=== PATIENT | female | born 1985 | race Caucasian/White ===

== ENCOUNTER 2017-04-25 16:15 | Inpatient (IN) | payer OTHER ==
[~2017-04-25] VITALS: Ht 157.5 cm; Wt 82.2 kg
[2017-04-25 16:33] VITALS: BP 114/58; PULSE 92; Ht 157.5 cm; Wt 82.2 kg
[2017-04-25] MEDS ORDERED: PNV11TAB PO (16:35)
[2017-04-25 17:20] LABS: ADD UMIC NO; UR ASCORBIC ACID 20 mg/dL (NEGATIVE); UR BILIRUBIN (Dip) NEGATIVE (NEGATIVE); UR BLOOD (Dip) NEGATIVE (NEGATIVE); UR CLARITY CLEAR (CLEAR); UR COLOR YELLOW (YELLOW); UR GLUCOSE (Dip) NEGATIVE (NEGATIVE); UR KETONES (Dip) NEGATIVE (NEGATIVE); UR LEUKOCYTE ESTERASE (Dip) NEGATIVE Leu/ul (NEGATIVE); UR NITRITE (Dip) NEGATIVE (NEGATIVE); UR TOTAL PROTEIN (Dip) NEGATIVE (NEGATIVE); UR UROBILINOGEN (Dip) NEGATIVE (NEGATIVE)
[2017-04-25 17:30] LABS: BASOPHILS % 0.2 % (0.0-2.0); EOSINOPHILS # 0.1 10^3/ul (0.0-0.5); EOSINOPHILS % 0.7 % (0.0-7.0); HEMATOCRIT 32.5 % (37.0-47.0); HEMOGLOBIN 11.3 g/dl (12.0-16.0); LYMPHOCYTES % 18.7 % (15.0-51.0); MEAN CORPUSCULAR HEMOGLOBIN 31.1 pg (29.0-33.0); MEAN CORPUSCULAR HGB CONC 34.8 g/dl (32.0-37.0); MEAN CORPUSCULAR VOLUME 89.5 fl (82.0-101.0); MONOCYTE # 0.8 10^3/ul (0.3-0.9); NEUTROPHIL # 7.8 10^3/ul (1.6-7.5); NEUTROPHILS % 72.8 % (39.0-77.0); PLATELET COUNT 180 10^3/UL (140-415); RED BLOOD COUNT 3.63 10^6/ul (4.20-5.40); WHITE BLOOD COUNT 10.7 10^3/ul (4.8-10.8)
--- NOTE | 2017-04-25 17:43 | RADRPT ---
PROCEDURE: Obstetrical ultrasound CLINICAL INDICATION: labor TECHNIQUE: Multiple sonographic images of the pelvis were obtained. The images were reviewed on a PACS workstation. COMPARISON: None FINDINGS: The cervix is not well visualized. There is a single viable intrauterine gestation. Cardiac activity is present with 174 beats per minute. There is a vertex presentation. The placenta is anterior. There is no evidence for an abruption or placenta previa. There is a subjectively normal amount of amniotic fluid. Measurements were made in order to determine age. The results are as follows (cm): BPD =9.34 HC =32.93 AC =33.40 FL =7.37 Estimated gestational age by ultrasound of approximately 37 weeks, 4 days. The estimated date of delivery by ultrasound is 05/12/2017. Estimated gestational age by LMP of approximately 36 weeks, 2 days. The estimated date of delivery by LMP is 05/21/2017. EFW = 3227 grams (83rd percentile) IMPRESSION: Single viable intrauterine gestation of approximately 37 weeks, 4 days . The estimated date of delivery is 05/12/2017 . Dating by ultrasound is within 9 days of dating by LMP. Cephalic presentation. Anterior placenta. Estimated weight is in the 83rd percentile. RPTAT: EE Physician Zena Date Time Electronically viewed and signed by Physician Zena on 04/25/2017 17:42 /
--- NOTE | 2017-04-25 18:03 | RADRPT ---
PROCEDURE: US OB biophysical profile. CLINICAL INDICATION: decreased movements, PTL TECHNIQUE: Multiple sonographic images of the pelvis were obtained. The images were reviewed on a PACS workstation. COMPARISON: No prior studies are available for comparison. FINDINGS: There is a single viable intrauterine gestation. Cardiac activity is present with 156 beats per min [place]. There is a vertex presentation. The placenta is anterior. There is no evidence of placental abruption. There is a normal amount of amniotic fluid with an ALON = 13.5 cm. Biophysical profile: movement 2/2 tone 2/2. breathing 2/2 ALON 2/2 Total 02/18 RPTAT: AA . IMPRESSION: Normal biophysical profile. . .Kaushik Alejandro MD, Date Time Electronically viewed and signed by .Kaushik Alejandro MD, MD on 04/25/2017 18:03 .S/
--- NOTE | 2017-04-25 18:57 | HP ---
Date/Time of Note Date/Time of Note DATE: 04/25/17 TIME: 18:55 OB - History Hx of Present Free Text/Dictation 37+wks with Variables for prolonged monitoring and IV hydration : 3 Para: 2 Care: Good Care Ultrasounds: Normal mid trimester US Obstetrical Complications: None Medical Complications: None Past Family/Social History * Past Medical, Surgical, Family and Obstetric Histories reviewed from chart. OB Admission Exam Vital Signs Vital Signs Vital Signs Date Time Temp Pulse Resp B/P Pulse Ox O2 Delivery O2 Flow Rate FiO2 04/25/17 16:33 97.5 92 114/58 Physical Exam Abdomen: WNL Cervical Dilatation: None Effacement: 25% Station: Ballotable Membranes: Intact Heart Rate: 140's Accelerations: Accelerations Present Decelerations: Variable Decelerations Varibility: Moderate Contractions on Admission: >10 Minutes Apart Last 72 hours Lab Results CBC & BMP 04/25/17 17:15 OB Assessment/Plan Reason for admission: observation Plan: Expectant Management IRMA VERNON M.D. Apr 25, 2017 18:57
[2017-04-25] MEDS: LACTATED RINGER'S 1,000 ML IV SCH (20:03)
[2017-04-25] MEDS ORDERED: ACETAMINOPHEN 1000MG/100ML IV 100 ML IVPB ONE (20:30)
[2017-04-26] MEDS: LACTATED RINGER'S 1,000 ML IV SCH (02:14)
[2017-04-26 07:58] VITALS: BP 98/56; PULSE 75; RESP 18
--- NOTE | 2017-04-26 09:39 | PD.PPDC ---
CEMENT CUTTER Discharge Instruction Condition Patient Condition: Good Diet Diet: Resume Regular Diet Activity/Restrictions Activity: Normal Activity Follow-up Follow-up with Physician: 2, Day/Days Return to clinic for [employer] Instructions: Fever greater than 101 Chills Worsening abdominal pain Excessive Vaginal Bleeding BEA VALDEZ MD Apr 26, 2017 09:39
--- NOTE | 2017-04-26 09:44 | DS ---
Date/Time of Note Date/Time of Note DATE: 04/26/17 TIME: 09:41 Obstetrical Discharge Record Final Diagnosis Final Diagnosis: not delivered Other Final Diagnosis Normal heart tracing; Category 1 Pt's initial complaints of pressure and fever have resolved. Complications Other (Pt had come in complaining of pain, fever which has completely resolved with IV hydration and IV Tylenol) Augmentation: No Induction: No Condition on Discharge Physical Assessment Last Vitals: T=97.2 BP 98/56 Voiding: Yes Bowel Movement: Yes Breast: Soft, non-tender Fundus: Other (Gravid) Calf Tenderness: No Patient Condition: Good BEA VALDEZ MD Apr 26, 2017 09:44
[2017-04-27] MEDS ORDERED: INFLUENZA VIRUS VACCINE 0.5 ML (DISPENSING) IM* ONE (09:00)
== END 2017-04-26 10:05 | disposition home or self-care (01) | DRG 780 ==
LOC: OBT 16:15 → L-D 16:17 → OBT 18:40 → OBG 18:51
PROVIDERS: ADMIT Obstetrics & Gynecology; ATTEND Obstetrics & Gynecology
DX: O47.1 False labor at or after 37 completed weeks of gestation (principal); R50.9 Fever, unspecified; Z3A.37 37 weeks gestation of pregnancy
CPT/HCPCS: 36415; 76815; 76818; 81003; 85025; 87086; G0463; J0131; J7120

== ENCOUNTER 2017-04-30 17:50 | Inpatient (IN) | payer OTHER ==
[~2017-04-30] VITALS: Ht 157.5 cm; Wt 82.2 kg
[~2017-04-30 17:50] MED LIST: PNV11TAB PO
[2017-04-30 18:14] VITALS: BP 109/59; PULSE 98; RESP 18; Ht 157.5 cm; Wt 82.2 kg
[2017-04-30] MEDS ORDERED: DIPHENHYDRAMINE 25 MG CAP PO ONE (18:30)
[2017-04-30 18:56] LABS: BASOPHILS % 0.3 % (0.0-2.0); EOSINOPHILS # 0.1 10^3/ul (0.0-0.5); EOSINOPHILS % 0.6 % (0.0-7.0); HEMATOCRIT 34.1 % (37.0-47.0); HEMOGLOBIN 11.5 g/dl (12.0-16.0); LYMPHOCYTES # 1.7 10^3/ul (0.8-2.9); LYMPHOCYTES % 21.5 % (15.0-51.0); MEAN CORPUSCULAR HEMOGLOBIN 30.2 pg (29.0-33.0); MEAN CORPUSCULAR HGB CONC 33.7 g/dl (32.0-37.0); MEAN CORPUSCULAR VOLUME 89.5 fl (82.0-101.0); MEAN PLATELET VOLUME 12.3 fl (7.4-10.4); MONOCYTE # 0.6 10^3/ul (0.3-0.9); MONOCYTES % 7.6 % (0.0-11.0); NEUTROPHIL # 5.5 10^3/ul (1.6-7.5); NEUTROPHILS % 69.2 % (39.0-77.0); PLATELET COUNT 189 10^3/UL (140-415); RED BLOOD COUNT 3.81 10^6/ul (4.20-5.40); RED CELL DISTRIBUTION WIDTH 12.2 % (11.5-14.5); WHITE BLOOD COUNT 7.9 10^3/ul (4.8-10.8)
--- NOTE | 2017-04-30 19:00 | RADRPT ---
PROCEDURE: US OB biophysical profile. CLINICAL INDICATION: evaluation TECHNIQUE: Multiple sonographic images of the pelvis were obtained. The images were reviewed on a PACS workstation. COMPARISON: No prior studies are available for comparison. FINDINGS: There is a single viable intrauterine gestation. Cardiac activity is present with 154 beats per min [place]. There is a vertex presentation. The placenta is anterior. There is no evidence of placental abruption. There is a normal amount of amniotic fluid with an ALON = 14.5 cm. Biophysical profile: movement 2/2 tone 2/2. breathing 2/2 ALON 2/2 Total 02/18 RPTAT: AA . IMPRESSION: Normal biophysical profile. Physician Zena Date Time Electronically viewed and signed by Physician Zena on 04/30/2017 19:00 /
--- NOTE | 2017-04-30 19:12 | PREOPHP ---
DATE OF ADMISSION: 04/30/2017 HISTORY OF PRESENT ILLNESS: Ms. Trudy Sandoval is a 31-year-old 3, para 1, EDC 05/21/2017, intrauterine at 37 weeks gestational age, complaining of severe generalized itching, espec ially her palms of her hands and soles of her feet, since last night. She denies any contractions, vaginal discharge. She reports good movement. Her care took place at [facility] at approximately 29 weeks' gestational age. PAST MEDICAL HISTORY: None. MEDICATIONS: vitamins. PAST SURGICAL HISTORY: Previous section x1. OBSTETRICAL HISTORY: x1 at 36 weeks' gestational age secondary to cholestasis of pregnanc y, x1 terminations of . GYNECOLOGIC HISTORY: 13, regular, 3 to 4 days. Denies any sexually transmitted diseases. Sexually active with 1 partner. SOCIAL HISTORY: Denies any smoking, drugs or alcohol. FAMILY HISTORY: None. REVIEW OF SYSTEMS: All within normal except history of present illness. PHYSICAL EXAMINATION: HEENT: Within normal. LUNGS: CTA bilateral. CARDIOVASCULAR: S1, S2, regular rhythm. ABDOMEN: Gravid, nontender. Negative CVA bilateral. EXTREMITIES: Negative edema. No calf tenderness. PELVIC: Vaginal exam deferred. heart tracing category 1. [place]: No contractions. Biophysical profile 02/18. Ultrasound performed on 04/25/2017 with an estimated weight of 3227 grams, in the 83rd percentile. ASSESSMENT: A 31-year-old 3, para 1, intrauterine at 37 weeks' gestational age, h ighly suspicious of cholestasis of . PLAN: Antipruritic medication. Liver panel, bile acid. Consider early delivery after complete saúl luation. Dictated By: LIANE BLACKWELL/MARKEL Conf#: [id number] DID#: [id number]
[2017-04-30 19:13] LABS: ALBUMIN 3.5 g/dl (3.3-4.9); BILIRUBIN,INDIRECT 0.3 mg/dl (0-1.1); BILIRUBIN,TOTAL 0.3 mg/dl (0.2-1.3); TOTAL PROTEIN 6.9 g/dl (6.1-8.1)
[2017-04-30] MEDS ORDERED: OXYTOCIN 30 UNITS/LR 500 ML IV SCH (20:30)
[2017-04-30] MEDS ORDERED: MISOPROSTOL 200 MCG TAB PR PRN (20:30)
[2017-04-30] MEDS ORDERED: CARBOPROST 250 MCG INJ IM PRN (20:30)
[2017-04-30] MEDS ORDERED: METHYLERGONOVINE 0.2 MG INJ IM PRN (20:30)
[2017-04-30] MEDS ORDERED: CEFAZOLIN 2 GM/50 ML (PMX) 50 ML IV SCH (20:30)
[2017-04-30] MEDS ORDERED: DIPHENHYDRAMINE 50 MG INJ IV PRN (20:30)
[2017-04-30] MEDS ORDERED: OXYTOCIN 30 UNITS/LR 500 ML IV PRN (20:30)
[2017-04-30] MEDS: LACTATED RINGER'S 1,000 ML IV SCH (20:58)
[2017-04-30] MEDS: URSODIOL 300 MG CAP PO SCH (21:24)
[2017-04-30] MEDS: HYDROCORTISONE 1% 28 GM CR TOP SCH (21:25)
--- NOTE | 2017-04-30 21:38 | TRIAGE ---
OB Triage Datetime Report Generated by CPN: 04/30/2017 21:38 Datetime: 04/30/2017 21:31 Assessment Type: Admission Assessment Vaginal Bleeding: None Maternal Assessment Level of Consciousness: Fully Conscious DTR's/Clonus: DTRs 2+; No Clonus Headache: Denies Blurred Vision: No Respiratory Effort: Unlabored; Regular Rhythm; Equal Expansion Nausea/Vomiting: Denies RUQ Epigastric Pain: Denies Lower Extremities Edema: None Upper Extremities Edema: None Facial Edema: None Fall Risk Assessment History of Falling: (0) No Secondary Diagnosis: (0) No Ambulatory Aid: (0) Bedrest/Nurse Assist IV Therapy: (0) No Gait: (0) Normal/Bedrest/Immobile Mental Status: (0) Oriented to Own Ability Fall Score: 0 Fall Risk Score Definition: No Risk: No action required Pain Presence: None/Denies Vaginal Exam Membrane Status: Intact Datetime: 04/30/2017 21:00 Labor Evaluation Frequency: Occasional Monitor Mode: External Duration (sec)2399: 40-70 Quality: Mild Pattern: Normal: <= 5 Contractions in 10 Minutes Resting Tone [place]: Relaxed Heart Rate FHR Baseline Rate: 145 Monitor Mode: External US FHR Baseline Changes: No Baseline Change Variability: Moderate 6-25 bpm Accelerations: 15X15 Decelerations: Variable Category: Category II Datetime: 04/30/2017 20:00 Labor Evaluation Frequency: Occasional Monitor Mode: External Duration (sec)2399: 40-90 Quality: Mild Pattern: Normal: <= 5 Contractions in 10 Minutes Resting Tone [place]: Relaxed Heart Rate FHR Baseline Rate: 145 Monitor Mode: External US Variability: Moderate 6-25 bpm Accelerations: 15X15 Decelerations: None Category: Category I Datetime: 04/30/2017 19:43 Stage of : OB Triage Datetime: 04/30/2017 19:40 Stage of : OB Triage Datetime: 04/30/2017 19:36 Stage of : OB Triage Assessment Type: Triage Maternal Assessment Level of Consciousness: Fully Conscious DTR's/Clonus: DTRs 2+; No Clonus Headache: Denies Blurred Vision: No Respiratory Effort: Unlabored; Regular Rhythm; Equal Expansion Breath Sounds, Left: Clear and Equal Breath Sounds, Right: Clear and Equal Nausea/Vomiting: Denies RUQ Epigastric Pain: Denies Lower Extremities Edema: None Degree: None Upper Extremities Edema: None Degree: None Facial Edema: None Temperature Route: Oral Fall Risk Assessment History of Falling: (0) No Secondary Diagnosis: (0) No Ambulatory Aid: (0) Bedrest/Nurse Assist IV Therapy: (0) No Gait: (0) Normal/Bedrest/Immobile Mental Status: (0) Oriented to Own Ability Fall Score: 0 Fall Risk Score Definition: No Risk: No action required Pain Assessment Pain Scale: 0 Pain Presence: None/Denies Pain Type: N/A Datetime: 04/30/2017 19:00 Stage of : OB Triage Maternal Assessment Level of Consciousness: Fully Conscious Labor Evaluation Frequency: 0 Monitor Mode: External Resting Tone [place]: Relaxed Heart Rate FHR Baseline Rate: 145 Monitor Mode: External US Variability: Moderate 6-25 bpm Accelerations: 15X15 Decelerations: None Category: Category I Pain Assessment Pain Scale: 0 Pain Goal: 3 Vaginal Exam Membrane Status: Intact Vaginal Bleeding: None Datetime: 04/30/2017 18:10 Assessment Type: Triage Maternal Assessment Level of Consciousness: Fully Conscious DTR's/Clonus: DTRs 2+; No Clonus Headache: Denies Blurred Vision: No Respiratory Effort: Unlabored; Regular Rhythm; Equal Expansion Breath Sounds, Left: Clear and Equal Breath Sounds, Right: Clear and Equal Nausea/Vomiting: Denies RUQ Epigastric Pain: Denies Lower Extremities Edema: None Degree: None Upper Extremities Edema: None Degree: None Facial Edema: None Fall Risk Assessment History of Falling: (0) No Secondary Diagnosis: (0) No Ambulatory Aid: (0) Bedrest/Nurse Assist IV Therapy: (0) No Gait: (0) Normal/Bedrest/Immobile Mental Status: (0) Oriented to Own Ability Fall Score: 0 Fall Risk Score Definition: No Risk: No action required Datetime: 04/30/2017 18:05 Monitor Mode: External Monitor Mode: External US Datetime: 04/30/2017 17:54 Time of Arrival: 04/30/2017 17:45 EGA: 37.0 Arrived By: Ambulatory Arrived From: Dr. Urban Chief Complaint: PT SENT IN FROM CLINIC FOR EVAL. OF POSIBLE CHOLESTASIS Movement: Present Contractions: Denies/Absent Rupture of Membranes: Denies Vaginal Bleeding: None Vaginal Discharge: Denies Recent Sexual Intercouse: Denies Abdominal Trauma: Not Applicable Patient Complaints: None Time Provider Notified: 04/30/2017 18:00 Provider Notified: ESHAGHIAN Initial Plan: EFM/BPP/BILE ACIDS/LIVER PROFILE Datetime: 04/26/2017 07:49 Maternal Assessment Level of Consciousness: Fully Conscious DTR's/Clonus: DTRs 2+ Headache: Denies Blurred Vision: No Nausea/Vomiting: Denies RUQ Epigastric Pain: Denies Facial Edema: None Labor Evaluation Frequency: irreg Duration (sec)2399: 60 Pattern: Normal: <= 5 Contractions in 10 Minutes Resting Tone [place]: Relaxed Heart Rate FHR Baseline Rate: 135 Monitor Mode: External US FHR Baseline Changes: No Baseline Change Variability: Moderate 6-25 bpm Accelerations: 15X15 Decelerations: None Category: Category I Pain Assessment Pain Scale: 0 Pain Presence: None/Denies Pain Goal: 0 Vaginal Exam Membrane Status: Intact Datetime: 04/26/2017 05:30 Labor Evaluation Frequency: x4 Monitor Mode: External Duration (sec)2399: 40-60 Quality: Mild Resting Tone [place]: Relaxed Heart Rate FHR Baseline Rate: 135 Monitor Mode: External US Variability: Moderate 6-25 bpm Accelerations: 15X15 Decelerations: None Category: Category I Pain Presence: None/Denies Datetime: 04/26/2017 04:30 Labor Evaluation Frequency: 0 Monitor Mode: External Resting Tone [place]: Relaxed Heart Rate FHR Baseline Rate: 140 Monitor Mode: External US Variability: Moderate 6-25 bpm Accelerations: 15X15 Decelerations: None Category: Category I Datetime: 04/26/2017 03:44 Stage of : Antepartum Temperature Route: Oral Pain Presence: None/Denies Datetime: 04/26/2017 03:30 Labor Evaluation Frequency: 0 Monitor Mode: External Resting Tone [place]: Relaxed Heart Rate FHR Baseline Rate: 130 Monitor Mode: External US Variability: Moderate 6-25 bpm Accelerations: 15X15 Decelerations: None Category: Category I Pain Presence: None/Denies Datetime: 04/26/2017 02:30 Labor Evaluation Frequency: x2 Monitor Mode: External Duration (sec)2399: 40 Quality: Mild Resting Tone [place]: Relaxed Heart Rate FHR Baseline Rate: 135 Monitor Mode: External US Variability: Moderate 6-25 bpm Accelerations: 15X15 Decelerations: None Category: Category I Pain Presence: None/Denies Datetime: 04/26/2017 01:30 Labor Evaluation Frequency: x1 Monitor Mode: External Duration (sec)2399: 40 Quality: Mild Resting Tone [place]: Relaxed Heart Rate FHR Baseline Rate: 135 Monitor Mode: External US Variability: Moderate 6-25 bpm Accelerations: 15X15 Decelerations: None Category: Category I Pain Presence: None/Denies Datetime: 04/26/2017 00:30 Labor Evaluation Frequency: x3 Monitor Mode: External Duration (sec)2399: 40-50 Quality: Mild Resting Tone [place]: Relaxed Heart Rate FHR Baseline Rate: 135 Monitor Mode: External US Variability: Moderate 6-25 bpm Accelerations: 15X15 Decelerations: None Category: Category I Pain Presence: None/Denies Datetime: 04/25/2017 23:30 Labor Evaluation Frequency: ocassional Monitor Mode: External Duration (sec)2399: 40-60 Quality: Mild Resting Tone [place]: Relaxed Heart Rate FHR Baseline Rate: 135 Monitor Mode: External US Variability: Moderate 6-25 bpm Accelerations: 15X15 Decelerations: None Category: Category I Pain Presence: None/Denies Datetime: 04/25/2017 22:30 Labor Evaluation Frequency: 0 Monitor Mode: External Resting Tone [place]: Relaxed Heart Rate FHR Baseline Rate: 125 Monitor Mode: External US Variability: Moderate 6-25 bpm Accelerations: 15X15 Decelerations: None Category: Category I Datetime: 04/25/2017 21:30 Labor Evaluation Frequency: x1 Monitor Mode: External Duration (sec)2399: 40 Quality: Mild Resting Tone [place]: Relaxed Heart Rate FHR Baseline Rate: 130 Monitor Mode: External US Variability: Moderate 6-25 bpm Accelerations: 15X15 Decelerations: None Category: Category I Pain Presence: None/Denies Datetime: 04/25/2017 20:32 Monitor Mode: External US Datetime: 04/25/2017 20:28 Stage of : Antepartum Assessment Type: Ongoing Assessment Maternal Assessment Level of Consciousness: Fully Conscious DTR's/Clonus: DTRs 2+; No Clonus Headache: Denies Blurred Vision: No Respiratory Effort: Unlabored; Regular Rhythm; Equal Expansion Breath Sounds, Left: Clear and Equal Breath Sounds, Right: Clear and Equal Nausea/Vomiting: Denies RUQ Epigastric Pain: Denies Lower Extremities Edema: None Degree: None Upper Extremities Edema: None Degree: None Facial Edema: None Temperature Route: Oral Fall Risk Assessment History of Falling: (0) No Secondary Diagnosis: (0) No Ambulatory Aid: (0) Bedrest/Nurse Assist IV Therapy: (0) No Gait: (0) Normal/Bedrest/Immobile Mental Status: (0) Oriented to Own Ability Fall Score: 0 Fall Risk Score Definition: No Risk: No action required Pain Presence: None/Denies Datetime: 04/25/2017 20:26 Monitor Mode: External Contraction Comments: placed. Monitor Mode: External US Comments: placed. Datetime: 04/25/2017 20:10 Stage of : Antepartum Datetime: 04/25/2017 20:04 Stage of : OB Triage Monitor Mode: External Quality: Mild Pattern: Normal: <= 5 Contractions in 10 Minutes Resting Tone [place]: Relaxed Heart Rate FHR Baseline Rate: 130 Monitor Mode: External US FHR Baseline Changes: No Baseline Change Variability: Moderate 6-25 bpm Accelerations: 15X15 Decelerations: Variable Category: Category II Datetime: 04/25/2017 19:40 Stage of : OB Triage Datetime: 04/25/2017 19:21 Stage of : OB Triage Monitor Mode: External Quality: Mild Pattern: Normal: <= 5 Contractions in 10 Minutes Resting Tone [place]: Relaxed Heart Rate FHR Baseline Rate: 130 Monitor Mode: External US Variability: Moderate 6-25 bpm Accelerations: 15X15 Decelerations: None Category: Category I Pain Assessment Pain Scale: 3 Pain Presence: Constant Pain Type: Pressure; Ache Pain Location: Back; Perineum Datetime: 04/25/2017 19:17 Variability: Moderate 6-25 bpm Accelerations: 15X15 Datetime: 04/25/2017 18:38 Stage of : OB Triage Datetime: 04/25/2017 18:10 Labor Evaluation Frequency: 0 Monitor Mode: External Resting Tone [place]: Relaxed Heart Rate FHR Baseline Rate: 145 Monitor Mode: External US Variability: Moderate 6-25 bpm Accelerations: 10X10 Decelerations: None Category: Category I Pain Assessment Pain Scale: 0 Pain Presence: Constant Pain Type: Dull; Ache Pain Location: Back Pain Goal: 3 Pain Relief Measures: Comfort Measures Datetime: 04/25/2017 17:22 Labor Evaluation Frequency: 0 Monitor Mode: External Resting Tone [place]: Relaxed Heart Rate FHR Baseline Rate: 150 Monitor Mode: External US Variability: Moderate 6-25 bpm Decelerations: Variable Category: Category II Pain Assessment Pain Scale: 2 Pain Presence: Constant Pain Type: Dull; Ache Pain Goal: 3 Pain Relief Measures: Comfort Measures Datetime: 04/25/2017 17:06 Stage of : OB Triage Datetime: 04/25/2017 16:52 Stage of : OB Triage Datetime: 04/25/2017 16:27 Stage of : OB Triage Assessment Type: Triage EGA: 36.2 Arrived By: Wheelchair Time Provider Notified: 04/25/2017 16:52 Provider Notified: eshaghian Maternal Assessment Level of Consciousness: Fully Conscious DTR's/Clonus: DTRs 2+; No Clonus Headache: Denies Blurred Vision: No Respiratory Effort: Unlabored; Regular Rhythm; Equal Expansion Breath Sounds, Left: Clear and Equal Breath Sounds, Right: Clear and Equal Nausea/Vomiting: Denies RUQ Epigastric Pain: Denies Facial Edema: None Temperature Route: Axillary Fall Risk Assessment History of Falling: (0) No Secondary Diagnosis: (0) No Ambulatory Aid: (0) Bedrest/Nurse Assist IV Therapy: (0) No Gait: (0) Normal/Bedrest/Immobile Mental Status: (0) Oriented to Own Ability Fall Score: 0 Fall Risk Score Definition: No Risk: No action required Labor Evaluation Frequency: X2 Monitor Mode: External Duration (sec)2399: 50-60 Quality: Mild Pattern: Normal: <= 5 Contractions in 10 Minutes Resting Tone [place]: Relaxed Heart Rate FHR Baseline Rate: 155 Monitor Mode: External US Variability: Moderate 6-25 bpm Accelerations: 10X10 Decelerations: None Category: Category I Pain Assessment Pain Scale: 2 Pain Presence: Constant Pain Type: Dull; Ache Pain Location: Back Pain Goal: 3 Pain Relief Measures: Comfort Measures Datetime: 04/25/2017 16:25 Time of Arrival: 04/25/2017 16:10 Arrived By: Ambulatory Arrived From: DrCharles Office Chief Complaint: SENT FROM DR OFFICE FOR FEVERS/CHILLS/COLD SORES, VAG PRESSURE FOR A COUPLE OF WE EKS THAT IS CONSTANT, BURNING IN LOWER BACK X 2 DAYS Movement: Present Contractions: Denies/Absent Rupture of Membranes: Denies Vaginal Bleeding: None Vaginal Discharge: Denies Recent Sexual Intercouse: Denies Abdominal Trauma: Not Applicable Time Provider Notified: 04/25/2017 16:52 Provider Notified: sd Initial Plan: MONITOR, U/A c/_s, efw, bpp, ve, cbc
[2017-04-30 21:43] LABS: INR 0.99; PROTIME 13.1 Sec (12.2-14.2)
[2017-04-30 21:44] LABS: PARTIAL THROMBOPLASTIN TIME 27.5 Sec (25.0-35.0)
[2017-05-01] MEDS: LACTATED RINGER'S 1,000 ML IV SCH ×4 (03:42→19:23)
[2017-05-01] MEDS: URSODIOL 300 MG CAP PO SCH ×2 (08:53→13:00)
[2017-05-01] MEDS: HYDROCORTISONE 1% 28 GM CR TOP SCH ×2 (09:00→21:00)
[2017-05-01] MEDS ORDERED: CARBOPROST 250 MCG INJ IM PRN ×2 (13:00→19:30)
[2017-05-01] MEDS ORDERED: OXYTOCIN 30 UNITS/LR 500 ML IVPB ONE (13:00)
[2017-05-01] MEDS ORDERED: OXYTOCIN 30 UNITS/LR 500 ML IV SCH (13:00)
[2017-05-01] MEDS ORDERED: CEFAZOLIN 2 GM/50 ML (PMX) 50 ML IV SCH (13:00)
[2017-05-01] MEDS ORDERED: MISOPROSTOL 200 MCG TAB PR PRN ×2 (13:00→19:30)
[2017-05-01] MEDS ORDERED: METHYLERGONOVINE 0.2 MG INJ IM PRN ×2 (13:00→19:30)
[2017-05-01] MEDS ORDERED: OXYTOCIN 30 UNITS/LR 500 ML IV PRN ×2 (13:00→19:30)
[2017-05-01] MEDS ORDERED: CITRIC ACID/NA CITRATE 30 ML CUP PO ONE (16:00)
[2017-05-01] MEDS ORDERED: ONDANSETRON 4 MG INJ IV ONE (16:00)
[2017-05-01] MEDS ORDERED: FENTAnyl 50 MCG/ML VIAL ONE (17:00)
[2017-05-01] MEDS ORDERED: morphine SULFATE/PF (10 MG/10 ML) INJ ONE (17:00)
--- NOTE | 2017-05-01 18:14 | QN ---
Documentation Comment patients evaluation was discussed with dr. redd. recommends delivery at this time. LIANE NASCIMENTO MD May 01, 2017 18:14
[2017-05-01] MEDS ORDERED: METOCLOPRAMIDE 10 MG INJ ONE (18:26)
[2017-05-01] MEDS ORDERED: EPHEDrine SULFATE 50 MG/5 ML SYG ONE (18:27)
[2017-05-01] MEDS ORDERED: OXYTOCIN 30 UNITS/LR 500 ML IV ONE (18:27)
[2017-05-01] MEDS ORDERED: PHENYLephrine (100 MCG/ML) 5ML SYG ONE (18:29)
--- NOTE | 2017-05-01 19:23 | SIPON ---
Date/Time of Note Date/Time of Note DATE: 05/01/17 TIME: 19:21 Operative Report Preoperative Diagnosis 31 yo iup at 37 wks ga, previous CD x 2, cholestasis of , desire elective repeat CD Postoperative Diagnosis same Operation/Procedure Performed Repeat low transverse CD Surgeon see signature line assistant county engineer Dr. Anuradha Santana Anesthesia: spinal Estimated blood loss: other (500) Transfusion Required none Specimen none Grafts/Implants none Complications none LIANE NASCIMENTO MD May 01, 2017 19:23
[2017-05-01] MEDS ORDERED: LANOLIN 7 GM TUBE TOP PRN (19:30)
[2017-05-01] MEDS ORDERED: OXYCODONE/ACETAMINOPHEN (5/325) TAB PO PRN (19:30)
[2017-05-01] MEDS ORDERED: morphine 4 MG/ML VIAL IV PRN (20:00)
[2017-05-01] MEDS ORDERED: KETOROLAC 30 MG INJ IV PRN (20:00)
[2017-05-01] MEDS ORDERED: TRIMETHOBENZAMIDE 100 MG/ML VIAL IM PRN (20:00)
[2017-05-01] MEDS ORDERED: DIPHENHYDRAMINE 50 MG INJ IV PRN (20:00)
[2017-05-01] MEDS ORDERED: NALBUPHINE HCL (10 MG/1 ML) INJ IV PRN (20:00)
[2017-05-01] MEDS ORDERED: morphine 2 MG INJ IV PRN (20:00)
[2017-05-01] MEDS ORDERED: NALOXONE (0.4 MG/ML) INJ IV PRN (20:00)
[2017-05-01] MEDS ORDERED: ONDANSETRON 4 MG INJ IV PRN (20:00)
[2017-05-01] MEDS: SENNA/DOCUSATE NA (8.6MG/50MG) TAB PO SCH (21:00)
[2017-05-01] MEDS: CEFAZOLIN 2 GM/50 ML (PMX) 50 ML IV SCH (21:22)
[2017-05-01 21:53] VITALS: BP 119/77; PULSE 65; RESP 17
[2017-05-02] VITALS: BP 104/62; PULSE 66; RESP 18
[2017-05-02 04:00] VITALS: BP 99/48; PULSE 64; RESP 18
[2017-05-02] MEDS: IBUPROFEN 600 MG TAB PO SCH ×5 (06:00→23:49)
[2017-05-02] MEDS: LACTATED RINGER'S 1,000 ML IV SCH ×2 (06:14→15:35)
[2017-05-02] MEDS: CEFAZOLIN 2 GM/50 ML (PMX) 50 ML IV SCH ×2 (06:15→13:19)
[2017-05-02 08:20] VITALS: BP 89/59; PULSE 75; RESP 19
[2017-05-02 09:12] LABS: BASOPHILS % 0.3 % (0.0-2.0); EOSINOPHILS % 0.4 % (0.0-7.0); HEMATOCRIT 32.7 % (37.0-47.0); HEMOGLOBIN 10.9 g/dl (12.0-16.0); LYMPHOCYTES # 1.6 10^3/ul (0.8-2.9); LYMPHOCYTES % 16.2 % (15.0-51.0); MEAN CORPUSCULAR HEMOGLOBIN 30.1 pg (29.0-33.0); MEAN CORPUSCULAR HGB CONC 33.3 g/dl (32.0-37.0); MEAN CORPUSCULAR VOLUME 90.3 fl (82.0-101.0); MEAN PLATELET VOLUME 12.2 fl (7.4-10.4); MONOCYTE # 0.8 10^3/ul (0.3-0.9); MONOCYTES % 7.6 % (0.0-11.0); NEUTROPHIL # 7.5 10^3/ul (1.6-7.5); PLATELET COUNT 150 10^3/UL (140-415); RED BLOOD COUNT 3.62 10^6/ul (4.20-5.40)
[2017-05-02] MEDS: SENNA/DOCUSATE NA (8.6MG/50MG) TAB PO SCH ×2 (09:16→20:32)
--- NOTE | 2017-05-02 10:25 | OPR ---
DATE OF OPERATION: 05/01/2017 PREOPERATIVE DIAGNOSIS: Intrauterine at 37 weeks gestational age, previous x2, desires elective repeat delivery, cholestasis of . POSTOPERATIVE DIAGNOSIS: Intrauterine at 37 weeks gestational age, previous x2, desires elective repeat delivery, cholestasis of . PROCEDURE: Repeat low transverse delivery via Pfannenstiel incision. SURGEON: Claudio Whittington MD REED WORKER: Anuradha Santana MD ANESTHESIA: Spinal. COMPLICATIONS: None. ESTIMATED BLOOD LOSS: 500 mL. FINDINGS: A viable female, 9 and 9 respectively at 1 and 5 minutes, weight 7 pounds 0 ounces. Normal uterus, tubes and ovaries. DESCRIPTION OF PROCEDURE: After explaining the risks, benefits and alternatives, the patient and co nsent signed in chart, the patient was taken to the operating room where spinal anesthesia was found to be adequate. She was then prepared and draped in normal sterile fashion in dorsal supine positi on with a leftward tilt. A Pfannenstiel skin incision was then made with a scalpel and carried to t he underlying layer of the fascia. The fascia was incised in the midline and incision was extended laterally with Santoro scissors. The superior aspect of the fascial incision was grasped with curved c lamps, elevated and the underlying rectus muscles dissected off bluntly. Attention was then turned to the inferior aspect of the incision which in similar fashion was grasped, tented up with curved c lamps and the rectus muscles dissected off bluntly. The rectus muscles were in midline, p eritoneum identified, tented up and entered sharply with Metzenbaum scissors. The peritoneal incisi on was extended superiorly with good visualization of bladder. The bladder blade was then inserted and the vesicouterine peritoneum identified, grasped with pickups and entered sharply with Metzenbau m scissors. This incision was extended laterally and a bladder flap created digitally. The bladder blade was then reinserted and her lower segment incised in transverse fashion with a scalpel. The uterine incision was extended laterally. The bladder blade was removed and the 's head delivered atraumatically. The nose and mouth we re suctioned and cord clamped and cut. The was handed off to awaiting fabric cutter. The [facility] was then removed. The uterus was exteriorized and cleared of all clots and debris. The uteri ne incision was repaired with 1-0 chromic in a running locked fashion. A second layer of same sutur e was used for imbrication obtaining excellent hemostasis. The uterus was returned to the abdomen. The gutters were cleared of all clots. The peritoneum and rectus abdominis muscles were reapproxim ated with 3-0 Vicryl in interrupted fashion. The fascia was reapproximated with 0 Vicryl in a runni ng fashion. The subcutaneous tissue was reapproximated with 2-0 plain gut in a running fashion. Th e skin was closed with absorbable eduard. The patient tolerated procedure well. Sponge, lap and n eedle counts correct x2. The patient was taken to recovery room in stable condition. Dictated By: CLAUDIO BLACKWELL/MARKEL Conf#: [id number] DID#: [id number]
[2017-05-02 12:00] VITALS: BP 94/54; PULSE 71; RESP 19
[2017-05-02 16:00] VITALS: BP 105/54; PULSE 70; RESP 18
--- NOTE | 2017-05-02 19:25 | QN ---
Documentation Comment Progress note postop day 1 Patient was seen and evaluated awake alert oriented 3 positive voiding tolerating diet positive flatulence Vital signs stable afebrile Abdomen soft nontender negative distention uterine fundus below umbilicus dressing clean Extremity negative edema no calf tenderness Assessment status post repeat delivery postop day 1 stable afebrile Plan iron supplement Encourage ambulation LIANE NASCIMENTO MD May 02, 2017 19:25
[2017-05-02 20:00] VITALS: BP 119/62; PULSE 63; RESP 18
[2017-05-02] MEDS: OXYCODONE/ACETAMINOPHEN (5/325) TAB PO PRN (20:32)
[2017-05-02] MEDS: FERROUS SULFATE (EC) 325 MG TAB PO SCH (20:32)
[2017-05-03] MEDS: IBUPROFEN 600 MG TAB PO SCH ×4 (06:00→23:05)
[2017-05-03] MEDS: OXYCODONE/ACETAMINOPHEN (5/325) TAB PO PRN ×4 (07:03→21:32)
[2017-05-03 08:02] VITALS: BP 93/49; PULSE 69; RESP 18
[2017-05-03] MEDS: SENNA/DOCUSATE NA (8.6MG/50MG) TAB PO SCH ×2 (08:14→21:32)
[2017-05-03] MEDS: FERROUS SULFATE (EC) 325 MG TAB PO SCH ×2 (08:14→21:32)
--- NOTE | 2017-05-03 10:25 | PN ---
Date/Time of Note Date/Time of Note DATE: 05/03/17 TIME: 10:23 OB Subjective Subjective Subjective May 03, 2017 Post C section day 2 Doing Well Afebrile Ambulatory Chest Clear Breasts are soft , Nipples are intact Abdomen is soft Fundus is firm Moderate amount of lochia Incision is clean ,No evidence of infection No calf tenderness No ankle edema Current Medications Medications (Trade) Dose Ordered Sig/Rochelle Route PRN Reason Start Time Stop Time Status Last Admin Dose Admin Diphenhydramine HCl 25 mg 25 mg ONCE ONCE PO 04/30/17 18:30 04/30/17 18:36 DC 04/30/17 18:41 Lactated Ringer's 1,000 ml @ 125 mls/hr Q8H IV 04/30/17 20:02 05/01/17 19:55 DC 05/01/17 17:36 Cefazolin Sodium/ Dextrose 50 ml @ 100 mls/hr ONCE IV 04/30/17 20:30 05/02/17 01:23 DC Oxytocin/Lactated Ringer's 500 ml @ 125 mls/hr ONCE IV 04/30/17 20:30 Oxytocin/Lactated Ringer's 500 ml @ 0 mls/hr ONCE PRN IV For Hemorrhage Management 04/30/17 20:30 05/01/17 19:55 DC Methylergonovine Maleate (Methergine) 0.2 mg ONCE PRN IM VAGINAL BLEEDING 04/30/17 20:30 05/01/17 19:55 DC Carboprost Tromethamine (Hemabate) 250 mcg ONCE PRN IM VAGINAL BLEEDING 04/30/17 20:30 05/01/17 19:55 DC Misoprostol (Cytotec) 1,000 mcg ONCE PRN [place] VAGINAL BLEEDING 04/30/17 20:30 05/01/17 19:55 DC Ursodiol (Actigall) 300 mg TID PO 04/30/17 21:00 05/02/17 01:23 DC 05/01/17 13:00 Hydrocortisone (Hydrocortisone 1% Cr) 1 applic TID TOP 04/30/17 21:00 05/02/17 01:23 DC 04/30/17 21:25 Diphenhydramine HCl 50 mg 50 mg Q6H PRN IV ITCHING 04/30/17 20:30 05/02/17 01:23 DC 04/30/17 22:48 Cefazolin Sodium/ Dextrose 50 ml @ 100 mls/hr ONCE IV 05/01/17 13:00 05/01/17 19:55 DC Oxytocin/Lactated Ringer's 500 ml @ 0 mls/hr ONCE PRN IV For Hemorrhage Management 05/01/17 13:00 05/02/17 01:23 DC Methylergonovine Maleate (Methergine) 0.2 mg ONCE PRN IM VAGINAL BLEEDING 05/01/17 13:00 05/01/17 19:55 DC Carboprost Tromethamine (Hemabate) 250 mcg ONCE PRN IM VAGINAL BLEEDING 05/01/17 13:00 05/01/17 19:55 DC Misoprostol 1000 mcg 1,000 mcg ONCE PRN [place] VAGINAL BLEEDING 05/01/17 13:00 05/01/17 19:55 DC Oxytocin/Lactated Ringer's 500 ml @ 125 mls/hr ONCE ONCE IVPB 05/01/17 13:00 05/01/17 16:59 DC 05/02/17 01:55 Oxytocin/Lactated Ringer's 500 ml @ 125 mls/hr Q4H IV 05/01/17 13:00 05/02/17 01:23 DC 05/01/17 21:07 Ondansetron HCl (Zofran Inj) 4 mg pre-procedure ONCE IV 05/01/17 16:00 05/01/17 16:01 DC 05/01/17 17:13 Citric Acid/ Sodium Citrate (Bicitra) 30 ml PRE-OP ONCE PO 05/01/17 16:00 05/01/17 16:01 DC 05/01/17 17:13 Fentanyl (Sublimaze) 100 mcg STK-MED ONCE .ROUTE 05/01/17 17:00 05/01/17 17:01 DC Morphine Sulfate (Duramorph) 10 mg STK-MED ONCE .ROUTE 05/01/17 17:00 05/01/17 17:01 DC Metoclopramide HCl 10 mg 10 mg STK-MED ONCE .ROUTE 05/01/17 18:26 05/01/17 18:27 DC Oxytocin/Lactated Ringer's 500 ml @ ud STK-MED ONCE IV 05/01/17 18:27 05/01/17 18:28 DC Ephedrine Sulfate 50 mg STK-MED ONCE .ROUTE 05/01/17 18:27 05/01/17 18:28 DC Phenylephrine HCl 500 mcg 500 mcg STK-MED ONCE .ROUTE 05/01/17 18:29 05/01/17 18:30 DC Lactated Ringer's 1,000 ml @ 125 mls/hr Q8H IV 05/01/17 19:23 05/02/17 19:25 DC 05/02/17 15:35 Cefazolin Sodium/ Dextrose (Ancef 2 Gm/50 ml (Pmx)) 50 ml @ 100 mls/hr Q8H IV 05/01/17 19:30 05/02/17 11:59 DC 05/02/17 13:19 Oxycodone/ Acetaminophen (Percocet (5/ 325)) 1 tab Q4H PRN PO PAIN LEVEL 4-6 05/01/17 19:30 Oxycodone/ Acetaminophen (Percocet (5/ 325)) 2 tab Q4H PRN PO PAIN LEVEL 7-10 05/01/17 19:30 05/03/17 07:03 Ibuprofen (Motrin) 600 mg Q6 PO 05/02/17 00:00 05/02/17 23:49 Simethicone (Mylicon) 160 mg Q8H PRN PO DISTENSION/GAS/BLOATING 05/01/17 19:30 Senna/Docusate Sodium (Senokot-S) 1 tab BID PO 05/01/17 21:00 05/03/17 08:14 Lanolin 1 applic 1 applic BEDSIDE MEDICATION PRN TOP BEDSIDE FOR FIORELLA TO NIPPLES 05/01/17 19:30 Oxytocin/Lactated Ringer's 500 ml @ 0 mls/hr ONCE PRN IV For Hemorrhage Management 05/01/17 19:30 Methylergonovine Maleate (Methergine) 0.2 mg ONCE PRN IM VAGINAL BLEEDING 05/01/17 19:30 Carboprost Tromethamine (Hemabate) 250 mcg ONCE PRN IM VAGINAL BLEEDING 05/01/17 19:30 Misoprostol (Cytotec) 1,000 mcg ONCE PRN [place] VAGINAL BLEEDING 05/01/17 19:30 Naloxone HCl (Narcan) 0.1 mg Q2M PRN IV FOR RESP RATE 8 OR LESS 05/01/17 20:00 05/02/17 19:59 DC Ketorolac Tromethamine (Toradol) 30 mg Q6H PRN IV PAIN 05/01/17 20:00 05/02/17 19:59 DC 05/02/17 13:19 Morphine Sulfate (morphine) 2 mg Q3H PRN IV PAIN LEVEL 1-5 05/01/17 20:00 05/02/17 19:59 DC Morphine Sulfate (morphine) 4 mg Q3H PRN IV PAIN LEVEL 6-10 05/01/17 20:00 05/02/17 19:59 DC Diphenhydramine HCl (Benadryl) 25 mg Q6H PRN IV ITCHING 05/01/17 20:00 05/02/17 19:59 DC Nalbuphine HCl (Nubain) 5 mg ONCE PRN IV ITCHING 05/01/17 20:00 05/02/17 19:59 DC Ondansetron HCl (Zofran Inj) 4 mg Q6H PRN IV NAUSEA AND/OR VOMITING 05/01/17 20:00 05/02/17 19:59 DC Trimethobenzamide HCl (Tigan) 200 mg Q6H PRN IM NAUSEA AND/OR VOMITING 05/01/17 20:00 05/02/17 19:59 DC Miscellaneous Information (* Miscellaneous Pharmacy Order) Duramorph: 0.2 mg Spi... GIVEN XX 05/01/17 20:00 05/02/17 01:23 DC Ferrous Sulfate (Ferrous Sulfate (Ec)) 325 mg BID PO 05/02/17 21:00 05/03/17 08:14 New born is doing well, Breast feeding KINA STEVENS MD May 03, 2017 10:25
[2017-05-03 16:00] VITALS: BP 111/61; PULSE 73; RESP 18
[2017-05-03 19:45] VITALS: BP 107/52; PULSE 78; RESP 18
[2017-05-04] MEDS: IBUPROFEN 600 MG TAB PO SCH ×2 (05:48→12:31)
[2017-05-04 06:05] VITALS: BP 80/50; PULSE 70; RESP 18
[2017-05-04 08:10] VITALS: BP 101/51; PULSE 70; RESP 16
[2017-05-04] MEDS: SENNA/DOCUSATE NA (8.6MG/50MG) TAB PO SCH (09:06)
[2017-05-04] MEDS: FERROUS SULFATE (EC) 325 MG TAB PO SCH (09:06)
--- NOTE | 2017-05-04 09:33 | DS ---
Date/Time of Note Date/Time of Note DATE: 05/04/17 TIME: 09:33 Obstetrical Discharge Record Final Diagnosis Final Diagnosis: Term delivered Section Section: Repeat Condition on Discharge Physical Assessment Last Vitals: Current Medications Medications (Trade) Dose Ordered Sig/Rochelle Route PRN Reason Start Time Stop Time Status Last Admin Dose Admin Diphenhydramine HCl 25 mg 25 mg ONCE ONCE PO 04/30/17 18:30 04/30/17 18:36 DC 04/30/17 18:41 Lactated Ringer's 1,000 ml @ 125 mls/hr Q8H IV 04/30/17 20:02 05/01/17 19:55 DC 05/01/17 17:36 Cefazolin Sodium/ Dextrose 50 ml @ 100 mls/hr ONCE IV 04/30/17 20:30 05/02/17 01:23 DC Oxytocin/Lactated Ringer's 500 ml @ 125 mls/hr ONCE IV 04/30/17 20:30 Oxytocin/Lactated Ringer's 500 ml @ 0 mls/hr ONCE PRN IV For Hemorrhage Management 04/30/17 20:30 05/01/17 19:55 DC Methylergonovine Maleate (Methergine) 0.2 mg ONCE PRN IM VAGINAL BLEEDING 04/30/17 20:30 05/01/17 19:55 DC Carboprost Tromethamine (Hemabate) 250 mcg ONCE PRN IM VAGINAL BLEEDING 04/30/17 20:30 05/01/17 19:55 DC Misoprostol (Cytotec) 1,000 mcg ONCE PRN [place] VAGINAL BLEEDING 04/30/17 20:30 05/01/17 19:55 DC Ursodiol (Actigall) 300 mg TID PO 04/30/17 21:00 05/02/17 01:23 DC 05/01/17 13:00 Hydrocortisone (Hydrocortisone 1% Cr) 1 applic TID TOP 04/30/17 21:00 05/02/17 01:23 DC 04/30/17 21:25 Diphenhydramine HCl 50 mg 50 mg Q6H PRN IV ITCHING 04/30/17 20:30 05/02/17 01:23 DC 04/30/17 22:48 Cefazolin Sodium/ Dextrose 50 ml @ 100 mls/hr ONCE IV 05/01/17 13:00 05/01/17 19:55 DC Oxytocin/Lactated Ringer's 500 ml @ 0 mls/hr ONCE PRN IV For Hemorrhage Management 05/01/17 13:00 05/02/17 01:23 DC Methylergonovine Maleate (Methergine) 0.2 mg ONCE PRN IM VAGINAL BLEEDING 05/01/17 13:00 05/01/17 19:55 DC Carboprost Tromethamine (Hemabate) 250 mcg ONCE PRN IM VAGINAL BLEEDING 05/01/17 13:00 05/01/17 19:55 DC Misoprostol 1000 mcg 1,000 mcg ONCE PRN [place] VAGINAL BLEEDING 05/01/17 13:00 05/01/17 19:55 DC Oxytocin/Lactated Ringer's 500 ml @ 125 mls/hr ONCE ONCE IVPB 05/01/17 13:00 05/01/17 16:59 DC 05/02/17 01:55 Oxytocin/Lactated Ringer's 500 ml @ 125 mls/hr Q4H IV 05/01/17 13:00 05/02/17 01:23 DC 05/01/17 21:07 Ondansetron HCl (Zofran Inj) 4 mg pre-procedure ONCE IV 05/01/17 16:00 05/01/17 16:01 DC 05/01/17 17:13 Citric Acid/ Sodium Citrate (Bicitra) 30 ml PRE-OP ONCE PO 05/01/17 16:00 05/01/17 16:01 DC 05/01/17 17:13 Fentanyl (Sublimaze) 100 mcg STK-MED ONCE .ROUTE 05/01/17 17:00 05/01/17 17:01 DC Morphine Sulfate (Duramorph) 10 mg STK-MED ONCE .ROUTE 05/01/17 17:00 05/01/17 17:01 DC Metoclopramide HCl 10 mg 10 mg STK-MED ONCE .ROUTE 05/01/17 18:26 05/01/17 18:27 DC Oxytocin/Lactated Ringer's 500 ml @ ud STK-MED ONCE IV 05/01/17 18:27 05/01/17 18:28 DC Ephedrine Sulfate 50 mg STK-MED ONCE .ROUTE 05/01/17 18:27 05/01/17 18:28 DC Phenylephrine HCl 500 mcg 500 mcg STK-MED ONCE .ROUTE 05/01/17 18:29 05/01/17 18:30 DC Lactated Ringer's 1,000 ml @ 125 mls/hr Q8H IV 05/01/17 19:23 05/02/17 19:25 DC 05/02/17 15:35 Cefazolin Sodium/ Dextrose (Ancef 2 Gm/50 ml (Pmx)) 50 ml @ 100 mls/hr Q8H IV 05/01/17 19:30 05/02/17 11:59 DC 05/02/17 13:19 Oxycodone/ Acetaminophen (Percocet (5/ 325)) 1 tab Q4H PRN PO PAIN LEVEL 4-6 05/01/17 19:30 05/04/17 09:06 Oxycodone/ Acetaminophen (Percocet (5/ 325)) 2 tab Q4H PRN PO PAIN LEVEL 7-10 05/01/17 19:30 05/03/17 21:32 Ibuprofen (Motrin) 600 mg Q6 PO 05/02/17 00:00 05/04/17 05:48 Simethicone (Mylicon) 160 mg Q8H PRN PO DISTENSION/GAS/BLOATING 05/01/17 19:30 Senna/Docusate Sodium (Senokot-S) 1 tab BID PO 05/01/17 21:00 05/04/17 09:06 Lanolin 1 applic 1 applic BEDSIDE MEDICATION PRN TOP BEDSIDE FOR FIORELLA TO NIPPLES 05/01/17 19:30 Oxytocin/Lactated Ringer's 500 ml @ 0 mls/hr ONCE PRN IV For Hemorrhage Management 05/01/17 19:30 Methylergonovine Maleate (Methergine) 0.2 mg ONCE PRN IM VAGINAL BLEEDING 05/01/17 19:30 Carboprost Tromethamine (Hemabate) 250 mcg ONCE PRN IM VAGINAL BLEEDING 05/01/17 19:30 Misoprostol (Cytotec) 1,000 mcg ONCE PRN [place] VAGINAL BLEEDING 05/01/17 19:30 Naloxone HCl (Narcan) 0.1 mg Q2M PRN IV FOR RESP RATE 8 OR LESS 05/01/17 20:00 05/02/17 19:59 DC Ketorolac Tromethamine (Toradol) 30 mg Q6H PRN IV PAIN 05/01/17 20:00 05/02/17 19:59 DC 05/02/17 13:19 Morphine Sulfate (morphine) 2 mg Q3H PRN IV PAIN LEVEL 1-5 05/01/17 20:00 05/02/17 19:59 DC Morphine Sulfate (morphine) 4 mg Q3H PRN IV PAIN LEVEL 6-10 05/01/17 20:00 05/02/17 19:59 DC Diphenhydramine HCl (Benadryl) 25 mg Q6H PRN IV ITCHING 05/01/17 20:00 05/02/17 19:59 DC Nalbuphine HCl (Nubain) 5 mg ONCE PRN IV ITCHING 05/01/17 20:00 05/02/17 19:59 DC Ondansetron HCl (Zofran Inj) 4 mg Q6H PRN IV NAUSEA AND/OR VOMITING 05/01/17 20:00 05/02/17 19:59 DC Trimethobenzamide HCl (Tigan) 200 mg Q6H PRN IM NAUSEA AND/OR VOMITING 05/01/17 20:00 05/02/17 19:59 DC Miscellaneous Information (* Miscellaneous Pharmacy Order) Duramorph: 0.2 mg Spi... GIVEN XX 05/01/17 20:00 05/02/17 01:23 DC Ferrous Sulfate (Ferrous Sulfate (Ec)) 325 mg BID PO 05/02/17 21:00 05/04/17 09:06 Voiding: Yes Bowel Movement: Yes Breast: Soft, non-tender Fundus: Firm Abdomen and Incision: CDI Patient Condition: Stable KELLY ANGELES MD May 04, 2017 09:33
[2017-05-08 17:02] LABS: CHENODEOXYCHOLIC ACID 2.9 umol/L (< OR = 3.1); CHOLIC ACID <0.5 umol/L (< OR = 1.8); DEOXYCHOLIC ACID 2.7 umol/L (< OR = 2.4); TOTAL BILE ACIDS 5.7 umol/L (< OR = 6.8)
== END 2017-05-04 14:37 | disposition home or self-care (01) | DRG 765 ==
LOC: OBT 17:50 → L-D 17:52 → OBT 19:43 → L-D 19:43 → PP1 05-01 21:54
PROVIDERS: ADMIT Obstetrics & Gynecology; ATTEND Obstetrics & Gynecology
PROC: 3E0P3VZ Introduction of Hormone into Female Reproductive, Percutaneous Approach (ICD-10-PCS; 2017-05-01)
PROC: 10D00Z1 Extraction of Products of Conception, Low, Open Approach (ICD-10-PCS; principal; 2017-05-01 18:00)
DX: O34.211 Maternal care for low transverse scar from previous cesarean delivery (principal); K83.1 Obstruction of bile duct; O26.62 Liver and biliary tract disorders in childbirth; E66.9 Obesity, unspecified; O99.214 Obesity complicating childbirth; Z68.33 Body mass index [BMI] 33.0-33.9, adult; Z3A.37 37 weeks gestation of pregnancy; Z37.0 Single live birth
CPT/HCPCS: 76818; 80076; 83789; 85025; 85610; 85730; 86592; 86850; 86900; 86901; 87340; 94760; 99464; G0463; J0690; J1200; J1885; J2274; J2370; J2405; J2590; J2765; J3010; J7120